=== PATIENT | female | born 1995 | race Caucasian/White ===

== ENCOUNTER → 2017-03-30 | Outpatient (CLI) | payer OTHER ==
[2017-03-30 14:07] LABS: HEMATOCRIT 40.4 % (36.0-47.0); HEMOGLOBIN 13.5 g/dL (12.0-15.5); MEAN CORPUSCULAR HGB CONC 33.4 g/dL (32.0-36.0); MEAN CORPUSCULAR VOLUME 84 fl (80-97); PLATELET COUNT 323 10^3/uL (150-450); RED BLOOD COUNT 4.83 10^6/uL (3.72-5.28); WHITE BLOOD COUNT 11.3 10^3/uL (4.0-10.5)
[2017-03-30 14:31] LABS: ALANINE AMINOTRANSFERASE 39 U/L (9-52); ALBUMIN 4.2 g/dL (3.5-5.0); ALKALINE PHOSPHATASE 134 U/L (38-126); ASPARTATE AMINO TRANSFERASE 20 U/L (14-36); BILIRUBIN,DIRECT 0.2 mg/dL (0.0-0.4); BILIRUBIN,TOTAL 0.4 mg/dL (0.2-1.3)
== END ==
LOC: OD 13:13
PROVIDERS: ATTEND Specialist
DX: C47 Malignant neoplasm of peripheral nerves and autonomic nervous system (principal); G40.89 Other seizures
CPT/HCPCS: 36415; 80076; 80175; 85027